=== PATIENT | female | born 1980 | race Caucasian/White ===

== ENCOUNTER 2020-12-13 16:29 | Emergency (ER) | payer MEDICAID, SELFPAY ==
[2020-12-13 16:41] VITALS: BP 147/84; PULSE 212; RESP 18; TEMP 36.9; O2SAT 95; BMI 45.3
--- NOTE | 2020-12-13 16:49 | ECG_ITS ---
Test Reason : CHEST PAIN Blood Pressure : / mmHG Vent. Rate : 104 BPM Atrial Rate : 104 BPM P-R Int : 146 ms QRS Dur : 100 ms QT Int : 348 ms P-R-T Axes : 050 041 021 degrees QTc Int : 457 ms Sinus tachycardia Otherwise normal ECG No previous ECGs available Referred By: Generic ED Physician Electronically Signed By:ANDRE ANGEL
--- NOTE | 2020-12-13 18:00 | ED_ITS ---
HPI - Abdominal Pain General Chief Complaint: Nausea/Vomiting/Diarrhea Stated Complaint: Abdominal pain Time Seen by Provider: 12/13/20 17:59 Source: patient Mode of arrival: ambulatory Limitations: no limitations History of Present Illness HPI narrative: Patient with history of migraine headache been complaining of headache for last 4 days also noticed clear foul-smelling discharge from the umbilicus area without any significant swelling history of umbilical hernia repair when she was child no protrusion patient having normal bowel movements had slight nausea no abdominal distension Related Data Previous Rx's Medication Instructions Recorded medkxopjsi-ejjevgvzcrrue-hwnihhta 1 cap PO Q6H PRN #20 cap 12/13/20 50 mg-300 mg-40 mg capsule (Fioricet) doxycycline hyclate 100 mg tablet 100 mg PO BID #20 tab 12/13/20 Allergies Allergy/AdvReac Type Severity Reaction Status Date / Time aspirin [ASA] AdvReac Unknown Verified 12/13/20 16:41 Review of Systems Review of Systems Yes all other systems are reviewed and are negative Physical Exam Vital Signs: Vital Signs: Last Vital Signs Temp 99.0 F 12/13/20 19:46 Pulse 89 12/13/20 19:46 Resp 16 12/13/20 19:46 BP 119/75 12/13/20 19:46 Pulse Ox 98 12/13/20 19:46 Body Mass Index 45.3 Appearance: Alert. Oriented X3. No acute distress. Eyes: PERRLA, No Nystagmus no pallor or icterus ENT: Pharynx normal. Oral Mucosa moist Neck: Normal inspection. Neck supple. CVS: Normal heart rate and rhythm. Pulses normal. Respiratory: No respiratory distress. Equal air entry bilateral, no wheezing/rales/rhonchi Abdomen: Soft and nontender. Bowel sounds are present, no mass palpable, no CVA tenderness ,no discharge or swelling noticed in the umbilicus area no hernia noticed Skin: Skin warm and dry. Normal skin color. Normal skin turgor. Extremities: No lower extremity edema. No calf tenderness Neuro: Oriented X 3. No motor deficit. No sensory deficit.No cerebellar signs , cranial nerves II-XII intact MDM - Abdominal Pain MDM Narrative Medical decision making narrative: During stay in the ER note significant disch arge was noted from umbilicus area with discharge patient home on doxycycline Discharge Plan Discharge Clinical Impression: Folliculitis Migraine Qualifiers: Migraine type: unspecified Status migrainosus presence: without status migrainosus Intractability: not intractable Qualified Code(s): G43.909 - Migraine, unspecified, not intractable, without status migrainosus Patient Disposition: Home, Self-Care Instructions: Migraine Headache (ED), Folliculitis (ED) Prescriptions: New doxycycline hyclate 100 mg tablet 100 mg PO BID Qty: 20 RF: 0 dquyraforb-jdomqcaemaiei-qwkg [Fioricet] 50-300-40 mg capsule 1 cap PO Q6H PRN (Reason: Headache) Qty: 20 RF: 0 Interventions: ED Discharge Assessment Last Done: 12/13/20 19:51 Discharge Date/Time: 12/13/20 19:52 PMFSH Past Medical History Medical History Asthma Diabetes Hypertension Social History Social History Advance Directives: No Advance Directives Information Provided: No
[2020-12-13 18:14] VITALS: BP 138/83; PULSE 98; RESP 18; TEMP 37.2; O2SAT 100
[2020-12-13] MEDS: traMADoL HCL 50 MG TABLET PO (18:23)
[2020-12-13] MEDS: Butalb/Acetamin/Caff 50/325/40 TABLET 1 TAB PO (18:23)
[2020-12-13] MEDS: Ondansetron ODT 4 MG TAB.RAPDIS TRANSLINGU (18:23)
[2020-12-13 19:46] VITALS: BP 119/75; PULSE 89; RESP 16; TEMP 37.2; O2SAT 98
== END 2020-12-13 19:52 | disposition home or self-care (01) ==
PROVIDERS: Emergency Provider Internal Medicine; PCP Internal Medicine
DX: L73.9 Follicular disorder, unspecified (principal); R07.9 Chest pain, unspecified; G43.909 Migraine, unspecified, not intractable, without status migrainosus; R11.2 Nausea with vomiting, unspecified; Z79.899 Other long term (current) drug therapy
CPT/HCPCS: 93005; 99283; 99284

== ENCOUNTER 2021-01-16 12:36 | Outpatient (REF) | payer MEDICAID, SELFPAY ==
--- NOTE | ~2021-01-16 | CT_ITS ---
EXAMINATION: CT ABDOMEN AND PELVIS WITHOUT CONTRAST CLINICAL INFORMATION: Umbilical hernia COMPARISON: None TECHNIQUE: Multidetector volumetric imaging was performed from the superior aspect of the liver through the pubic symphysis. Sagittal and coronal reformatted images were obtained on the technologist's workstation. This CT examination was performed using dose optimization techniques as appropriate, variously including the following: *Automated exposure control *Adjustment of mA and/or kV according to patient size (this includes techniques or standardized protocols for targeted exams where dose is matched to indication/reason for exam; i.e. extremities or head) *Use of iterative reconstruction technique DLP: 1165 mGy-cm FINDINGS: LUNG BASES: The visualized lung bases are unremarkable. LIVER, GALLBLADDER, AND BILIARY TREE: The liver is low in attenuation suggestive of fatty infiltration. The liver is enlarged, right lobe measuring 25 cm in length. The gallbladder has been removed. There are small calcifications seen in the liver. There is no biliary duct dilatation. PANCREAS: Unremarkable. SPLEEN: Unremarkable. ADRENAL GLANDS: Unremarkable. KIDNEYS AND URETERS: The kidneys are normal in size, shape, and attenuation. No hydronephrosis, hydroureter, or calculi seen. No perinephric stranding. BLADDER: Unremarkable. GASTROINTESTINAL TRACT: The small and large bowel are unremarkable. The appendix is unremarkable. ABDOMINAL WALL: There is a small supraumbilical hernia containing fat to the right of midline. This measures approximately 1.5 x 2 x 2 cm in AP transverse and longitudinal dimension. There is a tiny umbilical hernia containing fat that measures 5 x 10 x 10 mm. LYMPH NODES: Normal. VASCULAR: Unremarkable. PELVIC VISCERA: Unremarkable. OSSEOUS STRUCTURES: Unremarkable. CT/CT abdomen pelvis wo con IMPRESSION: Enlarged fatty liver. Small supraumbilical hernia just to the right of midline containing fat. Tiny umbilical hernia containing fat.
== END 2021-01-16 12:37 | disposition home or self-care (01) ==
LOC: HO.CT 12:36
PROVIDERS: Visit Provider Internal Medicine
DX: K42.9 Umbilical hernia without obstruction or gangrene (principal)
CPT/HCPCS: 74176

== ENCOUNTER 2021-08-21 08:57 | Outpatient (REF) | payer MEDICAID, SELFPAY ==
--- NOTE | ~2021-08-21 | XR_ITS ---
EXAMINATION: XR HAND, RIGHT CLINICAL INFORMATION: Pain COMPARISON: None TECHNIQUE: PA, lateral, and oblique views of the right hand. FINDINGS: The bones and soft tissues are normal. No fracture. Alignment is anatomic. Joint spaces are maintained. No erosions or soft tissue calcifications. XR/XR hand RT min 3V IMPRESSION: No significant right hand abnormality appreciated.
== END 2021-08-21 08:58 | disposition home or self-care (01) ==
LOC: HO.HOSX 08:57
PROVIDERS: Visit Provider Orthopaedic Surgery
DX: M79.641 Pain in right hand (principal); R20.0 Anesthesia of skin; R20.2 Paresthesia of skin
CPT/HCPCS: 73130; 99202

== ENCOUNTER 2021-11-29 08:44 | Outpatient (REF) | payer MEDICAID, SELFPAY ==
--- NOTE | 2021-11-29 08:47 | EMG_ITS ---
Bilateral median and ulnar motor and sensory studies were performed, bilateral radial sensory studies were performed, and paraspinal muscles were tested with a needle. 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 MD GOLDEN Vallejo/LANETTE / [id number]
== END 2021-11-29 08:45 | disposition home or self-care (01) ==
LOC: HO.NEURO 08:44
PROVIDERS: Visit Provider Orthopaedic Surgery
DX: R20.2 Paresthesia of skin (principal); R20.0 Anesthesia of skin
CPT/HCPCS: 95886; 95911

== ENCOUNTER 2022-02-25 14:50 | Outpatient (REF) | payer MEDICAID, SELFPAY ==
[2022-02-25 15:03] LABS: MANUAL DIFF FLAG NO
[2022-02-25 15:54] LABS: Basophils Absolute Auto 0.1 X10*3/uL (0.0-0.2); Basophils Percent Auto 0.4 % (0-2); Eosinophils Absolute Auto 0.5 X10*3/uL (0.0-0.4); Eosinophils Percent Auto 4.1 % (0-4); Hematocrit 42.4 % (37.0-47.0); Hemoglobin 13.9 g/dl (12.0-16.0); Imm Gran Abs Auto 0.04 X10*3/uL (0.00-0.03); Imm Gran Pct Auto 0.3 % (0.0-0.4); Lymphocytes Absolute Auto 5.2 X10*3/uL (1.2-4.9); Lymphocytes Percent Auto 40.3 % (20-40); Mean Corpuscular HGB Conc 32.8 g/dl (31.0-35.0); Mean Corpuscular Hemoglobin 27.6 pg (27.0-33.0); Mean Corpuscular Volume 84.1 fL (80.0-98.0); Mean Platelet Volume 11.2 fL (9.4-12.3); Monocytes Absolute Auto 0.6 X10*3/uL (0.1-1.2); Monocytes Percent Auto 4.9 % (2-11); Neutrophils Absolute Auto 6.5 x10*3/uL (2.0-8.3); Platelet Count 304 X10*3/uL (160-400); Red Blood Count 5.04 X10*6/uL (4.20-5.50); Red Cell Distribution Width 13.2 % (11.0-16.0); SCAN SMEAR FLAG 1; White Blood Count 12.9 X10*3/uL (4.8-10.8)
[2022-02-25 16:53] LABS: Alanine Aminotransferase 35 U/L (0-31); Albumin Level 4.4 g/dL (3.5-5.0); Alkaline Phosphatase 72 U/L (39-117); Anion Gap 16 (12-20); Aspartate Amino Transferase 21 U/L (5-31); Bilirubin Total 0.3 mg/dL (0.0-1.0); Blood Urea Nitrogen 14 mg/dL (9-16); Calcium 9.9 mg/dL (8.4-10.2); Carbon Dioxide 24 mmol/L (22-29); Chloride 103 mmol/L (96-108); Estimated Glomerular Filt Rate > 60; Glucose Random 175 mg/dL (60-115); Potassium 3.6 mmol/L (3.3-5.1); Sodium 139 mmol/L (135-145); Thyroid Stimulating Hormone 0.02 uIU/mL (0.32-4.0); Total Protein 7.2 g/dL (6.5-8.0)
[2022-02-27 20:36] LABS: Transglutaminase IgA <1.0 U/mL
[2022-03-02 12:02] LABS: Endomysial IgA Antibody Negative (Negative)
== END 2022-02-25 14:51 | disposition home or self-care (01) ==
LOC: HO.LAB 14:50
PROVIDERS: PCP Internal Medicine; Visit Provider Physician Assistant
DX: K52.9 Noninfective gastroenteritis and colitis, unspecified (principal); R11.2 Nausea with vomiting, unspecified
CPT/HCPCS: 36415; 80053; 84443; 85025; 86231; 86364; 99202

== ENCOUNTER 2022-02-26 08:19 | Outpatient (REF) | payer MEDICAID, SELFPAY ==
[2022-02-26 10:27] LABS: CDiff Gene PCR NEGATIVE (Negative)
[2022-03-07 16:34] LABS: Calprotectin, Fecal 71 mcg/g
== END 2022-02-26 08:20 | disposition home or self-care (01) ==
LOC: HO.LNP 08:19
PROVIDERS: Visit Provider Physician Assistant
DX: R11.2 Nausea with vomiting, unspecified (principal); R19.7 Diarrhea, unspecified; A04.8 Other specified bacterial intestinal infections
CPT/HCPCS: 83993; 87338; 87493

== ENCOUNTER 2022-02-26 09:03 | Outpatient (REF) | payer MEDICAID, SELFPAY ==
--- NOTE | ~2022-02-26 | XR_ITS ---
EXAMINATION: XR SHOULDER, RIGHT XR LUMBAR SPINE CLINICAL INFORMATION: Pain. COMPARISON: None TECHNIQUE: 3 views lumbar spine and 4 views right shoulder. FINDINGS: RIGHT SHOULDER: There is no visible acute fracture, dislocation or subluxation seen. The AC joint is intact. The soft tissues are normal. LUMBAR SPINE: There is normal lumbar lordosis. The vertebral heights, alignment and disc heights are normal. Minimal ventral spondylosis mid lumbar spine. SI joints are symmetrical and normal. Incidental finding of anterior abdominal wall hernia repair with mesh in place noted. XR/XR shoulder RT min 2V IMPRESSION: Unremarkable lumbar spine exam. Unremarkable right shoulder exam.
--- NOTE | ~2022-02-26 | XR_ITS ---
EXAMINATION: XR SHOULDER, RIGHT XR LUMBAR SPINE CLINICAL INFORMATION: Pain. COMPARISON: None TECHNIQUE: 3 views lumbar spine and 4 views right shoulder. FINDINGS: RIGHT SHOULDER: There is no visible acute fracture, dislocation or subluxation seen. The AC joint is intact. The soft tissues are normal. LUMBAR SPINE: There is normal lumbar lordosis. The vertebral heights, alignment and disc heights are normal. Minimal ventral spondylosis mid lumbar spine. SI joints are symmetrical and normal. Incidental finding of anterior abdominal wall hernia repair with mesh in place noted. XR/XR lumbar spine 2-3V IMPRESSION: Unremarkable lumbar spine exam. Unremarkable right shoulder exam.
[2022-02-26 11:40] LABS: C Reactive Protein 0.61 mg/dL (< or = 0.50)
[2022-02-26 12:03] LABS: Erythrocyte Sedimentation Rate 17 MM/HR (0-20)
== END 2022-02-26 09:04 | disposition home or self-care (01) ==
LOC: HO.XRAY 09:03
PROVIDERS: PCP Internal Medicine; Visit Provider Internal Medicine Rheumatology
DX: M25.511 Pain in right shoulder (principal); M54.50 Low back pain, unspecified
CPT/HCPCS: 36415; 72100; 73030; 85652; 86140; 99202

== ENCOUNTER → 2022-05-29 08:32 | Outpatient (BNVA) | payer MEDICAID, SELFPAY | PROVIDERS: PCP Internal Medicine; Visit Provider Internal Medicine Rheumatology | DX: M75.81 Other shoulder lesions, right shoulder (principal); M47.816 Spondylosis without myelopathy or radiculopathy, lumbar region; M79.7 Fibromyalgia | CPT/HCPCS: 20610; 99212 ==

== ENCOUNTER 2022-05-30 13:59 | Outpatient (REF) | payer MEDICAID, SELFPAY ==
[2022-05-30 15:17] LABS: MANUAL DIFF FLAG NO
[2022-05-30 15:30] LABS: Basophils Percent Auto 0.2 % (0-2); Eosinophils Absolute Auto 0.3 X10*3/uL (0.0-0.4); Eosinophils Percent Auto 2.2 % (0-4); Hematocrit 40.8 % (37.0-47.0); Hemoglobin 13.4 g/dl (12.0-16.0); Imm Gran Abs Auto 0.07 X10*3/uL (0.00-0.03); Imm Gran Pct Auto 0.5 % (0.0-0.4); Lymphocytes Absolute Auto 3.6 X10*3/uL (1.2-4.9); Lymphocytes Percent Auto 27.3 % (20-40); Mean Corpuscular HGB Conc 32.8 g/dl (31.0-35.0); Mean Corpuscular Hemoglobin 28.5 pg (27.0-33.0); Mean Corpuscular Volume 86.6 fL (80.0-98.0); Mean Platelet Volume 11.8 fL (9.4-12.3); Monocytes Absolute Auto 0.5 X10*3/uL (0.1-1.2); Neutrophils Absolute Auto 8.6 x10*3/uL (2.0-8.3); Neutrophils Percent Auto 65.8 % (45-73); Platelet Count 260 X10*3/uL (160-400); Red Blood Count 4.71 X10*6/uL (4.20-5.50); Red Cell Distribution Width 13.4 % (11.0-16.0); White Blood Count 13.1 X10*3/uL (4.8-10.8)
== END 2022-05-30 14:00 | disposition home or self-care (01) ==
LOC: HO.LAB 13:59
PROVIDERS: PCP Internal Medicine; Visit Provider Physician Assistant
DX: K52.9 Noninfective gastroenteritis and colitis, unspecified (principal); K21.9 Gastro-esophageal reflux disease without esophagitis; J45.909 Unspecified asthma, uncomplicated; E11.9 Type 2 diabetes mellitus without complications
CPT/HCPCS: 36415; 85025; 99212

== ENCOUNTER 2022-07-04 08:05 | Outpatient (REF) | payer MEDICAID, SELFPAY ==
--- NOTE | ~2022-07-04 | CT_ITS ---
EXAMINATION: CT ENTEROGRAPHY ABDOMEN AND PELVIS WITH CONTRAST CLINICAL INFORMATION: Nausea COMPARISON: Previous CT of the abdomen and pelvis January 2020 and limited abdominal ultrasound June 2019 TECHNIQUE: Study performed with oral VoLumen (1350 mL) and 480 mL of water to distend the abdomen. The patient was injected with 85 mL Omnipaque 350 intravenous contrast which was administered without adverse effect. Coronal and sagittal reformatted images were obtained at the technologist's workstation. This CT examination was performed using dose optimization techniques as appropriate, variously including the following: *Automated exposure control *Adjustment of mA and/or kV according to patient size (this includes techniques or standardized protocols for targeted exams where dose is matched to indication/reason for exam; i.e. extremities or head) *Use of iterative reconstruction technique DLP: 1196 mGy-cm FINDINGS: GASTROINTESTINAL FINDINGS: Stomach: Well-distended and normal in appearance. Small intestine: Satisfactorily distended and normal in appearance. Large intestine: Well-distended and normal in appearance. No perirectal changes demonstrated. The appendix is normal. Additional findings: No abnormal enhancement of the vasa recta or significant mesenteric or retroperitoneal lymphadenopathy is seen. No abdominal abscess or fistulous tract demonstrated. Postsurgical changes to the anterior abdominal wall. ABDOMINAL AND PELVIC CT FINDINGS: Liver, gallbladder, biliary tract: Fatty slightly enlarged liver. Small calcifications in an adjacent to the liver. No other focal lesion. Gallbladder has been removed. No biliary duct dilatation. Pancreas: Normal Spleen: Normal Adrenal glands and kidneys: Normal Ureters and bladder: Normal Lymphovascular structures: Normal Bones: Mild degenerative changes Lung bases: Normal CT/CT enterography IMPRESSION: Unremarkable enterography examination. Fatty liver. Postcholecystectomy.
[2022-07-04] MEDS: iohexoL 350 MG/ML 100 ML INFUS..BTL IV (09:56)
[2022-07-04] MEDS: Sorbitol/Mannit/Xanth Imaging 500 ML LIQUID 1500 ML PO (09:57)
== END 2022-07-04 08:06 | disposition home or self-care (01) ==
LOC: HO.CT 08:05
PROVIDERS: PCP Internal Medicine; Visit Provider Physician Assistant
DX: R11.0 Nausea (principal); K52.9 Noninfective gastroenteritis and colitis, unspecified
CPT/HCPCS: 74177; Q9967

== ENCOUNTER 2022-07-08 14:46 | Outpatient (REF) | payer MEDICAID, SELFPAY ==
[2022-07-17 19:19] LABS: Lactoferrin, Fecal, Quant. 8.39 mcg/mL (<7.25)
== END 2022-07-08 14:47 | disposition home or self-care (01) ==
LOC: HO.LNP 14:46
PROVIDERS: Visit Provider Physician Assistant
DX: K52.9 Noninfective gastroenteritis and colitis, unspecified (principal); R11.0 Nausea
CPT/HCPCS: 83631

== ENCOUNTER → 2022-07-10 08:13 | Outpatient (REF) | payer MEDICAID, SELFPAY ==
--- NOTE | ~2022-07-10 | NM_ITS ---
EXAMINATION: RADIONUCLIDE SOLID FOOD GASTRIC EMPTYING 4-HOUR STUDY CLINICAL INFORMATION: Type 2 diabetes mellitus without complications. COMPARISON: No previous gastric emptying study is available for comparison. TECHNIQUE: A standard meal consisting of 4 oz of Egg Beaters brand equivalent tagged with 650 microcuries Tc-99m Sulfur Colloid, 8 oz water and 2 slices of toast with jelly was administered orally to the patient. Images were obtained using a dual head gamma camera in the anterior and posterior projections over of the stomach immediately post ingestion and at hourly intervals up to 4 hours post ingestion. The anterior and posterior counts at each time interval were averaged using the geometric mean and expressed as percentage of the immediate post ingestion counts. FINDINGS: There is good visualization of activity in the stomach immediately post ingestion. As the study progresses, moderately diminished clearance of activity from the stomach. Small bowel activity is visualized, but at the end of the study there is moderately severe abnormal retention of activity in the stomach at 4 hours. Retention in the stomach at each time interval was: 1 hour 76% (normal 37%-90%) 2 hours 48% (normal 30%-60%) 3 hours 46% 4 hours 44% (normal 0%-10%) NM/NM gastric emptying study IMPRESSION: Abnormal study. There is moderately severe abnormal retention of solid food in the stomach at 4 hours.
[2022-07-10 09:59] LABS: HCG Quantitative < 2 mIU/mL
== END ==
LOC: HO.NUCMED 08:13
PROVIDERS: Nurse Practitioner Family; PCP Internal Medicine; Visit Provider Physician Assistant
DX: E11.9 Type 2 diabetes mellitus without complications (principal); R11.0 Nausea
CPT/HCPCS: 36415; 78264; 84702; A9541